=== PATIENT | male | born 1950 | race Two or more races ===

== ENCOUNTER 2016-11-06 07:08 | Inpatient (IN) | payer MEDICAID ==
[~2016-11-06] VITALS: Ht 172.7 cm; Wt 68.0 kg
[~2016-11-06 07:08] MED LIST: ASPI81CH43 PO; Atorvastatin Calcium PO; CALCCHW17 PO; CLOT1CRE13 EXT; DIPH2.5T47 PO; DONETAB6 PO; GLYB5TAB8 PO; LISI-646 PO; SERT-160 PO; SITA100T7 PO; TACRPOW10 PO; TRAM50TA2 PO
[2016-11-06 07:59] LABS: Basophils # (auto) 0 uL; Basophils % (auto) 0.2 % (0.0-2.0); Eosinophils # (auto) 0 uL; Eosinophils % (auto) 0.2 % (0.0-7.0); Hematocrit 44.8 % (41.0-53.0); Hemoglobin 15.3 g/dL (13.5-17.5); Lymphocytes % (auto) 7.9 % (10.0-50.0); Mean Corpuscular Hemoglobin 31.4 pg (28.0-32.0); Mean Corpuscular Hgb Conc. 34.1 g/dL (32.0-36.0); Mean Corpuscular Volume 92.2 fL (80.0-100.0); Mean Platelet Volume 9.8 fL (7.4-10.4); Monocytes % (auto) 7.4 % (0.0-12.0); Neutrophils % (auto) 84.3 % (37.0-80.0); Platelet Count (auto) 148 10^3/uL (140-450)
[2016-11-06 08:10] LABS: Albumin 3.6 g/dL (3.4-5.0); BUN/Creatinine Ratio 11.6; Calcium 8.9 mg/dL (8.5-10.1); Potassium 4.2 mmol/L (3.5-5.1)
[2016-11-06 08:12] LABS: Bilirubin, Total 1.1 mg/dL (0.2-1.0)
[2016-11-06 08:18] LABS: Urine Color Brown (Yellow); Urine Glucose TRACE mg/dL (Normal); Urine Ketone TRACE (Negative); Urine Mucus FEW (None Seen); Urine RBC 1264 /hpf (0 - 3); Urine Squamous Epithelial Cell MOD /hpf (<5); Urine Urobilinogen Normal (Negative); Urine WBC Clumps PRESENT /hpf (None Seen)
[2016-11-06 08:23] LABS: Urine Bilirubin Negative (Negative); Urine Blood 3+ /uL (Negative); Urine Nitrite POSITIVE (Negative)
[2016-11-06] MEDS ORDERED: SODIUM CHLORIDE 0.9% 1,000 ML IV ONE (11:15)
[2016-11-06] MEDS ORDERED: MORPHINE SULF INJ 2 MG/ML SYRINGE 1ML IV ONE (11:15)
[2016-11-06] MEDS ORDERED: LEVOFLOXACIN 750MG 150 ML IV ONE (11:15)
[2016-11-06] MEDS ORDERED: traMADol HCL 50 MG TAB PO PRN (15:45)
[2016-11-06] MEDS ORDERED: DEXTROSE (50%) 50ML SYRG IV PRN (15:45)
[2016-11-06] MEDS ORDERED: cefTRIAXone 1GM/50ML D5W 50 ML IV ONE (16:15)
[2016-11-06] MEDS ORDERED: ASPirin 81 mg TAB PO ONE (16:30)
[2016-11-06] MEDS ORDERED: LOSARTAN POTASSIUM 50 MG TAB PO ONE (16:30)
[2016-11-06] MEDS ORDERED: SERTRALINE HCL 50 MG TAB PO ONE (16:30)
[2016-11-06] MEDS: ONDANSETRON HCL 4 MG/2 ML VIAL IV PRN ×2 (17:38→18:15)
[2016-11-06] MEDS: MORPHINE SULF INJ 2 MG/ML SYRINGE 1ML IV PRN ×2 (17:39→18:15)
[2016-11-06] MEDS: TAMSULOSIN HYDROCHLORIDE 0.4 MG CAP PO SCH (17:40)
[2016-11-06] MEDS: ACCU-CHEK COMFORT CURVE STRIP VI SCH ×2 (17:40→22:00)
[2016-11-06] MEDS: InsuLIN REG 1unit/0.01ml Soln (100units/ml) SC SCH (18:02)
[2016-11-06 18:30] VITALS: BP 126/63
[2016-11-06 20:00] VITALS: BP 104/54
[2016-11-06 22:00] VITALS: BP 104/54
[2016-11-06] MEDS: GABAPENTIN 300 MG CAP PO SCH (22:29)
[2016-11-06] MEDS: ATORVASTATIN 20 MG TAB PO SCH (22:29)
[2016-11-06] MEDS: HYDROcodone-ACET 5/325MG TAB PO PRN (22:29)
[2016-11-07] VITALS (7 sets, daily range): BP systolic 101–122; BP diastolic 58–64
[2016-11-07] MEDS: InsuLIN REG 1unit/0.01ml Soln (100units/ml) SC SCH ×5 (00:38→23:32)
[2016-11-07] MEDS: TACROLIMUS 1 MG CAP PO SCH ×3 (01:17→20:05)
[2016-11-07] MEDS: SODIUM CHLORIDE 0.9% 1,000 ML IV SCH ×2 (05:05→17:34)
[2016-11-07] MEDS: ACCU-CHEK COMFORT CURVE STRIP VI SCH ×4 (05:50→20:12)
[2016-11-07 07:03] LABS: Partial Thromboplastin Time 29.9 sec (22.64-33.71); Prothrombin Time 10.9 sec (9.37-12.3)
[2016-11-07 07:05] LABS: Basophils # (auto) 0 uL; Basophils % (auto) 0.2 % (0.0-2.0); Eosinophils # (auto) 0.1 uL; Eosinophils % (auto) 1.4 % (0.0-7.0); Hematocrit 38.8 % (41.0-53.0); Hemoglobin 13.3 g/dL (13.5-17.5); Lymphocytes # (auto) 1.4 uL; Lymphocytes % (auto) 15.3 % (10.0-50.0); Mean Corpuscular Hemoglobin 31.6 pg (28.0-32.0); Mean Corpuscular Hgb Conc. 34.3 g/dL (32.0-36.0); Mean Corpuscular Volume 92.1 fL (80.0-100.0); Mean Platelet Volume 10.2 fL (7.4-10.4); Monocytes # (auto) 0.9 uL; Neutrophils # (auto) 6.5 uL; Neutrophils % (auto) 73.1 % (37.0-80.0); Platelet Count (auto) 124 10^3/uL (140-450); Red Cell Distribution Width 13.4 % (11.6-16.0); White Blood Cell 8.9 10^3/uL (4.4-10.8)
[2016-11-07 07:13] LABS: Albumin 2.7 g/dL (3.4-5.0); BUN/Creatinine Ratio 18.2; Calcium 8.2 mg/dL (8.5-10.1); Potassium 4.1 mmol/L (3.5-5.1)
[2016-11-07 07:16] LABS: Bilirubin, Total 0.5 mg/dL (0.2-1.0); Total Protein 6.8 g/dL (6.4-8.2)
[2016-11-07] MEDS: GABAPENTIN 300 MG CAP PO SCH ×2 (10:29→20:05)
[2016-11-07] MEDS: cefTRIAXone 1GM/50ML D5W 50 ML IV SCH (10:29)
[2016-11-07] MEDS: ASPirin 81 mg TAB PO SCH (10:29)
[2016-11-07] MEDS: SERTRALINE HCL 50 MG TAB PO SCH (10:30)
[2016-11-07] MEDS: LOSARTAN POTASSIUM 50 MG TAB PO SCH (10:30)
[2016-11-07] MEDS: HYDROcodone-ACET 5/325MG TAB PO PRN ×2 (11:44→20:07)
[2016-11-07] MEDS: MORPHINE SULF INJ 2 MG/ML SYRINGE 1ML IV PRN (16:09)
[2016-11-07] MEDS: TAMSULOSIN HYDROCHLORIDE 0.4 MG CAP PO SCH (17:34)
[2016-11-07] MEDS: ATORVASTATIN 20 MG TAB PO SCH (20:05)
[2016-11-08] MEDS: HYDROcodone-ACET 5/325MG TAB PO PRN ×3 (02:37→21:52)
[2016-11-08 05:30] VITALS: BP 121/70
[2016-11-08] MEDS: ACCU-CHEK COMFORT CURVE STRIP VI SCH ×4 (05:43→21:53)
[2016-11-08] MEDS: SODIUM CHLORIDE 0.9% 1,000 ML IV SCH ×2 (05:45→21:54)
[2016-11-08] MEDS: InsuLIN REG 1unit/0.01ml Soln (100units/ml) SC SCH ×4 (06:29→21:53)
[2016-11-08 09:00] VITALS: BP 115/60
[2016-11-08] MEDS: cefTRIAXone 1GM/50ML D5W 50 ML IV SCH (10:02)
[2016-11-08] MEDS: ASPirin 81 mg TAB PO SCH (10:02)
[2016-11-08] MEDS: SERTRALINE HCL 50 MG TAB PO SCH (10:03)
[2016-11-08] MEDS: GABAPENTIN 300 MG CAP PO SCH ×2 (10:03→21:52)
[2016-11-08] MEDS: TACROLIMUS 1 MG CAP PO SCH ×2 (10:06→21:53)
[2016-11-08] MEDS: LOSARTAN POTASSIUM 50 MG TAB PO SCH (10:09)
[2016-11-08 13:00] VITALS: BP 133/53
[2016-11-08] MEDS: TAMSULOSIN HYDROCHLORIDE 0.4 MG CAP PO SCH (16:58)
[2016-11-08 17:00] VITALS: BP 137/67
[2016-11-08 20:00] VITALS: BP 142/69
[2016-11-08] MEDS: ATORVASTATIN 20 MG TAB PO SCH (21:52)
[2016-11-08 22:00] VITALS: BP 142/69
[2016-11-09 05:30] VITALS: BP 133/77
[2016-11-09] MEDS: HYDROcodone-ACET 5/325MG TAB PO PRN (05:46)
[2016-11-09] MEDS: InsuLIN REG 1unit/0.01ml Soln (100units/ml) SC SCH (06:34)
[2016-11-09] MEDS: ACCU-CHEK COMFORT CURVE STRIP VI SCH (06:34)
[2016-11-09 08:00] VITALS: BP 133/72
[2016-11-09] MEDS: SERTRALINE HCL 50 MG TAB PO SCH (08:57)
[2016-11-09] MEDS: GABAPENTIN 300 MG CAP PO SCH (08:58)
[2016-11-09] MEDS: TACROLIMUS 1 MG CAP PO SCH (08:58)
[2016-11-09] MEDS: cefTRIAXone 1GM/50ML D5W 50 ML IV SCH (08:58)
[2016-11-09] MEDS: ASPirin 81 mg TAB PO SCH (08:58)
[2016-11-09] MEDS: SODIUM CHLORIDE 0.9% 1,000 ML IV SCH (08:59)
[2016-11-09 09:00] VITALS: BP 133/72
[2016-11-09] MEDS: LOSARTAN POTASSIUM 50 MG TAB PO SCH (10:00)
[2016-11-09 10:33] VITALS: BP 133/72
== END 2016-11-09 12:00 | disposition home or self-care (01) | DRG 720 ==
LOC: EDBD 07:08 → ER 07:11 → TELE 07:12 → WEST WING 18:34
PROVIDERS: ADMIT Internal Medicine; ATTEND Internal Medicine
DX: A41.9 Sepsis, unspecified organism (principal); Z94.4 Liver transplant status; K74.60 Unspecified cirrhosis of liver; E11.9 Type 2 diabetes mellitus without complications; K40.20 Bilateral inguinal hernia, without obstruction or gangrene, not specified as recurrent; N40.0 Benign prostatic hyperplasia without lower urinary tract symptoms; E86.0 Dehydration; I10 Essential (primary) hypertension; N10 Acute pyelonephritis; F32.9 Major depressive disorder, single episode, unspecified; Z71.89 Other specified counseling; Z79.82 Long term (current) use of aspirin; E27.9 Disorder of adrenal gland, unspecified
CPT/HCPCS: 36415; 51702; 74176; 80053; 81001; 82962; 83036; 83605; 85025; 85610; 85730; 87040; 87086; 87088; 87186; 96365; 96367; 96375; J0696; J1815; J1956; J2405; J7507